=== PATIENT | female | born 1950 | race Caucasian/White ===

== ENCOUNTER 2020-12-20 07:14 | Day surgery (SDC) | payer MEDICARE ==
[2020-12-20] MEDS ORDERED: Dextrose 5%-Lactated Ringers 1,000 ML IV SCH (07:45)
[2020-12-20] MEDS ORDERED: Propofol 200 MG/20 ML SDV ONE (08:52)
[2020-12-20] MEDS ORDERED: Midazolam 1 MG/ML 2 ML SDV ONE (08:52)
[2020-12-20] MEDS ORDERED: fentaNYL 100 MCG/2 ML SDV ONE (08:52)
--- NOTE | 2021-01-01 16:37 | OR ---
DATE OF PROCEDURE: 12/20/2020 SURGEON: Elver Olson MD PREOPERATIVE DIAGNOSIS: Positive Cologuard examination. POSTOPERATIVE DIAGNOSIS: Positive Cologuard examination with a normal colonoscopic exam. OPERATIVE PROCEDURE: Flexible colonoscopy. ANESTHESIA: IV sedation. INDICATION FOR PROCEDURE: This is a 70-year-old female who recently underwent a Cologuard test which was positive. Plan is to proceed with colonoscopy with biopsies and/or polypectomies at this time. Potential risks including bleeding and perforation were discussed, and the patient wishes to proceed. DETAILS OF PROCEDURE: The patient was taken to the operating room and placed in a left lateral decubitus position. IV sedation was administered, after which the initial digital rectal exam was performed and was unremarkable. Colonoscope was then passed into the rectum with retroflexion revealing uncomplicated hemorrhoidal columns. Scope was then eventually passed to the level of the cecum. The prep was fairly good with only a small amount of liquid stool that was present. To that level, there appeared to be no areas of diverticulosis, no areas of colitis, and no polyps or other signs of neoplasia. The scope was then withdrawn, the above findings reconfirmed, and the procedure then concluded. Given the normal findings and likely personal and family history of colon neoplasia, the next colonoscopy could be considered in 10 years, and would be reasonable to repeat Cologuard testing in a shorter term as well. Elver Olson MD /[id number]
== END 2020-12-20 10:25 | disposition home or self-care (01) ==
LOC: JP.SDS 07:14
PROVIDERS: ATTEND Surgery
DX: R19.5 Other fecal abnormalities (principal); K64.9 Unspecified hemorrhoids; I10 Essential (primary) hypertension
CPT/HCPCS: 45378; J2250; J2704; J3010; J7121

== ENCOUNTER 2024-09-29 06:26 | Day surgery (SDC) | payer MEDICARE ==
[2024-09-29] MEDS ORDERED: Midazolam 1 MG/ML 2 ML SDV ONE (06:56)
[2024-09-29] MEDS ORDERED: fentaNYL 50 MCG/ML SDV ONE (06:56)
[2024-09-29] MEDS ORDERED: Propofol 200 MG/20 ML SDV ONE ×3 (06:56→08:13)
[2024-09-29] MEDS: Lactated Ringers 1,000 ML IV SCH (07:30)
== END 2024-09-29 10:00 | disposition home or self-care (01) ==
LOC: JP.SDS 06:26
PROVIDERS: ATTEND Surgery
DX: K21.00 Gastro-esophageal reflux disease with esophagitis, without bleeding (principal); K63.5 Polyp of colon; I10 Essential (primary) hypertension; K44.9 Diaphragmatic hernia without obstruction or gangrene
CPT/HCPCS: 00813; 43239; 45380; 45385; J2250; J2704; J3010; J7120